=== PATIENT | female | born 1960 | race Hispanic/Latino ===

== ENCOUNTER → 2019-12-27 | Day surgery (SDC) | payer BC, SELFPAY ==
[2019-12-24 13:29] LABS: BASOPHILS % 0.4 % (0.0-1.0); EOSINOPHILS # (AUTO) 0.1 (0.0-0.4); EOSINOPHILS % 0.9 % (0.0-6.0); HEMATOCRIT 28.1 % (34.2-44.1); HEMOGLOBIN 8.6 g/dL (12.0-16.0); LYMPHOCYTES # (AUTO) 2.2 (1.0-3.2); LYMPHOCYTES % 28.8 % (18.0-39.1); MEAN CORPUSCULAR HEMOGLOBIN 25.8 pg (28-32); MEAN CORPUSCULAR HGB CONC 30.6 g/dL (31-35); MEAN CORPUSCULAR VOLUME 84.4 fL (81-99); MONOCYTES # (AUTO) 0.4 (0.2-0.8); MONOCYTES % 5.1 % (4.4-11.3); NEUTROPHILS % 64.5 % (38.7-80.0); PLATELET COUNT 383 x10e3/uL (140-360); RED BLOOD COUNT 3.33 x10e6/uL (3.6-5.1); RED CELL DISTRIBUTION WIDTH 15.2 % (11.7-14.4)
[2019-12-24 13:46] LABS: ANION GAP 15.2 mmol/L (8-16); CREATININE, SERUM 1.5 mg/dL (0.57-1.11); POTASSIUM 5.2 mmol/L (3.5-5.1)
[~2019-12-27] MED LIST: BASAGLAR K100 UNIT/1 SC; BETAMETHASONE DISODIUM PHOS 6 MG/ML VIAL ONE; BUPIVACAINE HCL 0.5% INJ 30 ML VIAL INJ ONE; CEFAZOLIN SOD 1 GM/NS 50ML 100 ML IV ONE; DEXAMETHASONE SOD PHOS INJ 4 MG/ML VIAL ONE; FENTANYL CITRATE/PF 100MCG/2 ML INJ ONE; GLIPIZIDE ER5 MG PO; HUMALOG100 UNIT/1 PO; LIDOCAINE HCL 1% LOCAL INJ 20 ML VIAL ONE; LIDOCAINE HCL 2% LOCAL INJ 5 ML SDV VIAL INJ ONE; METFORMIN HCL500 MG PO; MIDAZOLAM HCL 2 MG/2 ML VIAL ONE; ONDANSETRON HCL INJ 2MG/ML 2ML 2 MG/ML VIAL ONE; PROPOFOL IV EMULSION 10 MG/ML 20 ML VIAL ONE; SEVOFLURANE INHAL SOLN 250 ML PEN BTL ONE
[2019-12-27 06:32] LABS: ANION GAP 16.2 mmol/L (8-16); CREATININE, SERUM 1.66 mg/dL (0.57-1.11); POTASSIUM 5.2 mmol/L (3.5-5.1)
[2019-12-27 09:35] VITALS: BP 140/78
== END | disposition home or self-care (01) ==
LOC: OR 05:31
PROVIDERS: ATTEND Podiatrist Foot Surgery
DX: M86.172 Other acute osteomyelitis, left ankle and foot (principal); M86.672 Other chronic osteomyelitis, left ankle and foot; I96 Gangrene, not elsewhere classified; M20.12 Hallux valgus (acquired), left foot; L97.529 Non-pressure chronic ulcer of other part of left foot with unspecified severity; M87.9 Osteonecrosis, unspecified; E11.22 Type 2 diabetes mellitus with diabetic chronic kidney disease; N18.9 Chronic kidney disease, unspecified; R00.0 Tachycardia, unspecified; Z01.810 Encounter for preprocedural cardiovascular examination; Z01.812 Encounter for preprocedural laboratory examination; Z01.818 Encounter for other preprocedural examination; Z20.828 Contact with and (suspected) exposure to other viral communicable diseases; Z79.4 Long term (current) use of insulin
CPT/HCPCS: 14040; 28820; 36415 ×2; 71046; 73620; 80048 ×2; 82948; 85025; 87071; 87075; 87186; 87205; 88305; 88311; 93005; J0690; J0720; J1100; J2001 ×2; J2250; J2405; J2704; J3010; U0002; 88304

== ENCOUNTER 2020-07-25 11:29 | Inpatient (IN) | payer BC, SELFPAY ==
[~2020-07-25] VITALS: Ht 160 cm; Wt 63.5 kg
[~2020-07-25 11:29] MED LIST changes: -BETAMETHASONE DISODIUM PHOS 6 MG/ML VIAL ONE; -BUPIVACAINE HCL 0.5% INJ 30 ML VIAL INJ ONE; -CEFAZOLIN SOD 1 GM/NS 50ML 100 ML IV ONE; -DEXAMETHASONE SOD PHOS INJ 4 MG/ML VIAL ONE; -FENTANYL CITRATE/PF 100MCG/2 ML INJ ONE; -LIDOCAINE HCL 1% LOCAL INJ 20 ML VIAL ONE; -LIDOCAINE HCL 2% LOCAL INJ 5 ML SDV VIAL INJ ONE; -MIDAZOLAM HCL 2 MG/2 ML VIAL ONE; -ONDANSETRON HCL INJ 2MG/ML 2ML 2 MG/ML VIAL ONE; -PROPOFOL IV EMULSION 10 MG/ML 20 ML VIAL ONE; -SEVOFLURANE INHAL SOLN 250 ML PEN BTL ONE
[2020-07-25 12:07] LABS: BASOPHILS % 0.2 % (0.0-1.0); EOSINOPHILS # (AUTO) 0.1 (0.0-0.4); EOSINOPHILS % 0.4 % (0.0-6.0); HEMATOCRIT 40.1 % (34.2-44.1); HEMOGLOBIN 12.6 g/dL (12.0-16.0); LYMPHOCYTES # (AUTO) 3.4 (1.0-3.2); LYMPHOCYTES % 27.1 % (18.0-39.1); MEAN CORPUSCULAR HEMOGLOBIN 26.7 pg (28-32); MEAN CORPUSCULAR HGB CONC 31.4 g/dL (31-35); MONOCYTES # (AUTO) 0.7 (0.2-0.8); MONOCYTES % 5.6 % (4.4-11.3); NEUTROPHILS # (AUTO) 8.2 (2.1-6.9); NEUTROPHILS % 66.4 % (38.7-80.0); PLATELET COUNT 356 x10e3/uL (140-360); RED BLOOD COUNT 4.72 x10e6/uL (3.6-5.1)
[2020-07-25 12:25] LABS: ALBUMIN 3.8 g/dL (3.5-5.0); ALBUMIN/GLOBULIN RATIO 0.7 (0.8-2.0); ANION GAP 14.9 mmol/L (8-16); CALCIUM 9.8 mg/dL (8.4-10.2); CREATININE, SERUM 1.93 mg/dL (0.57-1.11); POTASSIUM 5.9 mmol/L (3.5-5.1)
[2020-07-25] MEDS ORDERED: SODIUM CHLORIDE 0.9% 500ML 500 ML IV ONE (13:45)
[2020-07-25] MEDS ORDERED: ATORVASTATIN CA40 MG (13:57)
[2020-07-25] MEDS ORDERED: FUROSEMIDE20 MG (13:57)
[2020-07-25] MEDS ORDERED: LISINOPRIL2.5 MG (13:57)
[2020-07-25] MEDS ORDERED: LOPRESSOR25 MG (13:57)
[2020-07-25] MEDS ORDERED: SODIUM CHLORIDE 0.9% 1000ML 1,000 ML IV SCH (14:30)
[2020-07-25] MEDS ORDERED: DEXTROSE 50% SYRINGE 50 ML IV PRN (14:30)
[2020-07-25] MEDS ORDERED: ONDANSETRON HCL INJ 2MG/ML 2ML 2 MG/ML VIAL IV PRN (14:30)
[2020-07-25 15:18] LABS: CREATINE KINASE MB 1.3 ng/mL (0-5.0)
[2020-07-25] MEDS ORDERED: DEXTROSE 50% SYRINGE 50 ML IV STA (15:47)
[2020-07-25] MEDS ORDERED: SOD POLYSTYRENE SULFONATE SUSP 15 GM/60 ML BTL PO ONE (16:00)
[2020-07-25] MEDS ORDERED: CALCIUM GLUCONATE 10% INJ 4.65 MEQ in SODIUM CHLORIDE 0.9% 50ML 50 ML IV ONE (16:00)
[2020-07-25] MEDS ORDERED: LACTULOSE SYRUP 20 GM/30 ML UDC PO ONE (16:00)
[2020-07-25] MEDS ORDERED: INSULIN REGULAR, HUMAN 100 UNIT/1 ML 3ML VIAL IV ONE (16:00)
[2020-07-25] MEDS: INSULIN LISPRO 100 UNIT/1 ML 3ML VIAL SQ SCH ×2 (16:18→21:00)
[2020-07-25 16:52] LABS: CLARITY,URINE HAZY (CLEAR); COLOR,URINE YELLOW (YELLOW); KETONES,URINE NEGATIVE (NEGATIVE); LEUKOCYTE ESTERASE ,URINE MODERATE (NEGATIVE); NITRITE,URINE NEGATIVE (NEGATIVE); PROTEIN,URINE DIPSTICK 2+ (NEGATIVE); URINE UROBILINOGEN 0.2 mg/dL (0.2 - 1)
[2020-07-25 17:08] LABS: BACTERIA,URINE MANY /HPF
[2020-07-25 17:44] LABS: CREATININE,URINE RANDOM 61.76 mg/dL (47-110); TOTAL PROTEIN, URINE 56.6 mg/dL (1-14)
[2020-07-25] MEDS: SODIUM CHLORIDE 0.9% 1000ML 1,000 ML IV SCH (18:45)
[2020-07-25 21:14] LABS: ALBUMIN 3.6 g/dL (3.5-5.0); ALBUMIN/GLOBULIN RATIO 0.8 (0.8-2.0); CALCIUM 9.6 mg/dL (8.4-10.2); CREATININE, SERUM 1.96 mg/dL (0.57-1.11)
[2020-07-25 21:29] LABS: CREATINE KINASE MB 1.6 ng/mL (0-5.0)
[2020-07-25 22:00] VITALS: BP 166/77
[2020-07-25 22:04] VITALS: BP 166/77
[2020-07-26] VITALS (8 sets, daily range): BP systolic 163–178; BP diastolic 74–85
[2020-07-26] MEDS: SODIUM CHLORIDE 0.9% 1000ML 1,000 ML IV SCH ×3 (03:20→23:10)
[2020-07-26 06:13] LABS: BASOPHILS % 0.4 % (0.0-1.0); EOSINOPHILS # (AUTO) 0.1 (0.0-0.4); EOSINOPHILS % 0.8 % (0.0-6.0); HEMATOCRIT 36.8 % (34.2-44.1); HEMOGLOBIN 11.8 g/dL (12.0-16.0); LYMPHOCYTES # (AUTO) 2.9 (1.0-3.2); LYMPHOCYTES % 34.6 % (18.0-39.1); MEAN CORPUSCULAR HEMOGLOBIN 27.1 pg (28-32); MEAN CORPUSCULAR HGB CONC 32.1 g/dL (31-35); MEAN CORPUSCULAR VOLUME 84.4 fL (81-99); MONOCYTES # (AUTO) 0.7 (0.2-0.8); MONOCYTES % 8.2 % (4.4-11.3); NEUTROPHILS # (AUTO) 4.6 (2.1-6.9); NEUTROPHILS % 55.8 % (38.7-80.0); PLATELET COUNT 304 x10e3/uL (140-360); RED BLOOD COUNT 4.36 x10e6/uL (3.6-5.1)
[2020-07-26 06:26] LABS: ALBUMIN 3.2 g/dL (3.5-5.0); ALBUMIN/GLOBULIN RATIO 0.7 (0.8-2.0); ANION GAP 10.2 mmol/L (8-16); CALCIUM 8.6 mg/dL (8.4-10.2); CREATININE, SERUM 1.35 mg/dL (0.57-1.11); POTASSIUM 4.2 mmol/L (3.5-5.1)
[2020-07-26 06:45] LABS: CREATINE KINASE MB 1.7 ng/mL (0-5.0)
[2020-07-26] MEDS: INSULIN LISPRO 100 UNIT/1 ML 3ML VIAL SQ SCH ×4 (07:30→20:49)
[2020-07-26] MEDS: TERAZOSIN HCL 1 MG CAP PO SCH (20:47)
[2020-07-27] VITALS (8 sets, daily range): BP systolic 150–198; BP diastolic 80–97
[2020-07-27 06:11] LABS: ANION GAP 12.9 mmol/L (8-16); CALCIUM 8.6 mg/dL (8.4-10.2); CREATININE, SERUM 1.24 mg/dL (0.57-1.11); POTASSIUM 3.9 mmol/L (3.5-5.1)
[2020-07-27] MEDS: INSULIN LISPRO 100 UNIT/1 ML 3ML VIAL SQ SCH ×4 (07:55→21:36)
[2020-07-27] MEDS: SODIUM CHLORIDE 0.9% 1000ML 1,000 ML IV SCH ×2 (08:00→20:58)
[2020-07-27] MEDS: SODIUM BICARBONATE 650 MG TAB PO SCH (08:01)
[2020-07-27] MEDS: TERAZOSIN HCL 1 MG CAP PO SCH (21:36)
[2020-07-27] MEDS: MEROPENEM 500 MG in SODIUM CHLORIDE 0.9% 50ML 50 ML IV SCH (22:00)
[2020-07-28] VITALS (8 sets, daily range): BP systolic 142–173; BP diastolic 71–87
[2020-07-28] MEDS: HYDRALAZINE HCL 20 MG/ML VIAL IV PRN ×2 (01:02→12:22)
[2020-07-28] MEDS: MEROPENEM 500 MG in SODIUM CHLORIDE 0.9% 50ML 50 ML IV SCH ×3 (05:07→22:51)
[2020-07-28] MEDS: SODIUM CHLORIDE 0.9% 1000ML 1,000 ML IV SCH (05:07)
[2020-07-28 05:38] LABS: ANION GAP 9.6 mmol/L (8-16); CALCIUM 8.5 mg/dL (8.4-10.2); CREATININE, SERUM 1.16 mg/dL (0.57-1.11); POTASSIUM 3.6 mmol/L (3.5-5.1)
[2020-07-28] MEDS: INSULIN LISPRO 100 UNIT/1 ML 3ML VIAL SQ SCH ×4 (07:30→21:20)
[2020-07-28] MEDS ORDERED: ONDANSETRON HCL 4 MG ORAL DISINTEGRATING TAB PO PRN (08:15)
[2020-07-28] MEDS: SODIUM BICARBONATE 650 MG TAB PO SCH (09:25)
[2020-07-28] MEDS: TERAZOSIN HCL 1 MG CAP PO SCH (21:19)
[2020-07-29] VITALS (8 sets, daily range): BP systolic 127–156; BP diastolic 66–75
[2020-07-29] MEDS: METOPROLOL TARTRATE 50 MG TAB PO SCH ×3 (00:55→16:21)
[2020-07-29 05:34] LABS: ANION GAP 11.1 mmol/L (8-16); CALCIUM 8.4 mg/dL (8.4-10.2); CREATININE, SERUM 1.33 mg/dL (0.57-1.11); POTASSIUM 4.1 mmol/L (3.5-5.1)
[2020-07-29] MEDS: MEROPENEM 500 MG in SODIUM CHLORIDE 0.9% 50ML 50 ML IV SCH (05:58)
[2020-07-29] MEDS: INSULIN LISPRO 100 UNIT/1 ML 3ML VIAL SQ SCH ×4 (07:30→21:51)
[2020-07-29] MEDS: SODIUM BICARBONATE 650 MG TAB PO SCH (08:24)
[2020-07-29] MEDS: MEROPENEM 1 GM in SODIUM CHLORIDE 0.9% 100 ML IV SCH (16:21)
[2020-07-29] MEDS: TERAZOSIN HCL 1 MG CAP PO SCH (21:22)
[2020-07-30 01:42] VITALS: BP 143/82
[2020-07-30 05:26] VITALS: BP 133/77
[2020-07-30] MEDS: MEROPENEM 1 GM in SODIUM CHLORIDE 0.9% 100 ML IV SCH (05:53)
[2020-07-30] MEDS: INSULIN LISPRO 100 UNIT/1 ML 3ML VIAL SQ SCH ×3 (07:30→16:30)
[2020-07-30 08:07] VITALS: BP 153/80
[2020-07-30 08:12] VITALS: BP 153/80
[2020-07-30] MEDS: SODIUM BICARBONATE 650 MG TAB PO SCH (08:56)
[2020-07-30] MEDS: METOPROLOL TARTRATE 50 MG TAB PO SCH ×2 (09:01→16:13)
[2020-07-30 11:38] VITALS: BP 161/69
[2020-07-30] MEDS ORDERED: SODIUM BICARBO650 MG PO (13:44)
[2020-07-30] MEDS ORDERED: METOPROLOL TART50 MG PO (13:44)
[2020-07-30] MEDS ORDERED: HYTRIN1 M1 PO (13:44)
[2020-07-30] MEDS ORDERED: MEROPENEM1 GM IVP (13:48)
[2020-07-30 15:15] VITALS: BP 147/67
== END 2020-07-30 17:47 | disposition home or self-care (01) | DRG 683 ==
LOC: ER 12:15 → ERHOLD 14:38 → MED/SURG2 21:37
PROVIDERS: ADMIT Internal Medicine; ATTEND Internal Medicine
PROC: 02HV33Z Insertion of Infusion Device into Superior Vena Cava, Percutaneous Approach (ICD-10-PCS; principal; 2020-07-29)
DX: N17.9 Acute kidney failure, unspecified (principal); N39.0 Urinary tract infection, site not specified; E87.2 Acidosis; E87.6 Hypokalemia; B96.20 Unspecified Escherichia coli [E. coli] as the cause of diseases classified elsewhere; N18.32 Chronic kidney disease, stage 3b; E87.5 Hyperkalemia; E11.319 Type 2 diabetes mellitus with unspecified diabetic retinopathy without macular edema; E11.42 Type 2 diabetes mellitus with diabetic polyneuropathy; E11.22 Type 2 diabetes mellitus with diabetic chronic kidney disease; E78.5 Hyperlipidemia, unspecified; I12.9 Hypertensive chronic kidney disease with stage 1 through stage 4 chronic kidney disease, or unspecified chronic kidney disease; Z79.4 Long term (current) use of insulin
CPT/HCPCS: 36415; 76770; 80048; 80053; 81001; 82550; 82553; 82570; 82948; 84156; 84484; 85025; 87086; 87186; 93005; 96361; 96372; 99284; J0360; J0610; J1817; J2185; J7030; J7040; J7050; J7799

== ENCOUNTER 2022-04-09 10:06 | Inpatient (IN) | payer BC, OTHER ==
[~2022-04-09] VITALS: Ht 160 cm; Wt 63.5 kg
[~2022-04-09 10:06] MED LIST changes: +ATORVASTATIN CA40 MG; +FUROSEMIDE20 MG; +HYTRIN1 M1 PO; +LANTUS 3ML100 UNITS/ SQ; +LISINOPRIL2.5 MG; +LOPRESSOR25 MG; +MEROPENEM1 GM IVP; +METOPROLOL TART50 MG PO; +SODIUM BICARBO650 MG PO
[2022-04-09] MEDS ORDERED: SODIUM CHLORIDE 0.9% 1000ML 1,000 ML IV STA (10:18)
[2022-04-09] MEDS ORDERED: ONDANSETRON HCL INJ 2MG/ML 2ML 2 MG/ML VIAL IV PRN ×2 (10:30→13:00)
[2022-04-09] MEDS ORDERED: SODIUM CHLORIDE 0.9% 1000ML 1,000 ML ONE (10:41)
[2022-04-09] MEDS ORDERED: ONDANSETRON HCL INJ 2MG/ML 2ML 2 MG/ML VIAL ONE (10:41)
[2022-04-09 11:07] LABS: CLARITY,URINE CLEAR (CLEAR); COLOR,URINE YELLOW (YELLOW); KETONES,URINE NEGATIVE (NEGATIVE); LEUKOCYTE ESTERASE ,URINE NEGATIVE (NEGATIVE); NITRITE,URINE NEGATIVE (NEGATIVE); PROTEIN,URINE DIPSTICK >=300 (NEGATIVE); URINE UROBILINOGEN 0.2 mg/dL (0.2 - 1)
[2022-04-09 11:21] LABS: AMORPHOUS SEDIMENT,URINE FEW (FEW); BACTERIA,URINE MODERATE /HPF; EPITHELIAL CELLS,URINE RARE /LPF; RBC,URINE 0-5 /HPF (0-5); WBC,URINE (MAN) 0-5 /HPF (0-5)
[2022-04-09 11:49] LABS: BASOPHILS # (AUTO) 0.1 (0.0-0.1); BASOPHILS % 0.2 % (0.0-1.0); HEMATOCRIT 33.3 % (34.2-44.1); HEMOGLOBIN 10.7 g/dL (12.0-16.0); LYMPHOCYTES # (AUTO) 1.2 (1.0-3.2); LYMPHOCYTES % 4.2 % (18.0-39.1); MEAN CORPUSCULAR HEMOGLOBIN 27.4 pg (28-32); MEAN CORPUSCULAR HGB CONC 32.1 g/dL (31-35); MEAN CORPUSCULAR VOLUME 85.4 fL (81-99); MONOCYTES # (AUTO) 1.5 (0.2-0.8); MONOCYTES % 5.4 % (4.4-11.3); NEUTROPHILS # (AUTO) 25.5 (2.1-6.9); NEUTROPHILS % 89.4 % (38.7-80.0); PLATELET COUNT 161 x10e3/uL (140-360); RED CELL DISTRIBUTION WIDTH 14.4 % (11.7-14.4)
[2022-04-09 12:10] LABS: ALBUMIN 2.4 g/dL (3.5-5.0); ALBUMIN/GLOBULIN RATIO 0.5 (0.8-2.0); ANION GAP 16.6 mmol/L (8-16); CALCIUM 8.8 mg/dL (8.4-10.2); CREATININE, SERUM 2.95 mg/dL (0.57-1.11); POTASSIUM 4.6 mmol/L (3.5-5.1)
[2022-04-09] MEDS ORDERED: PIPERACILLIN/TAZOBACTAM 4.5 GM in SODIUM CHLORIDE 0.9% 100 ML IV STA (12:31)
[2022-04-09] MEDS ORDERED: SODIUM CHLORIDE 0.9% 1000ML 1,000 ML IV SCH (13:00)
[2022-04-09 13:02] LABS: LYMPHOCYTES % (MANUAL) 4 % (19-48); MONOCYTES % (MANUAL) 7 % (3.4-9.0); NEUTROPHILS % (MANUAL) 89 % (40-74)
[2022-04-09 13:03] LABS: PLATELET ESTIMATE ADEQUATE; PLATELET MORPHOLOGY COMMENT NORMAL; RBC MORPHOLOGY COMMENT NORMAL
[2022-04-09] MEDS ORDERED: ACETAMINOPHEN 325 MG TAB ONE (16:43)
[2022-04-09] MEDS ORDERED: ACETAMINOPHEN 325 MG TAB PO ONE (16:45)
[2022-04-09 17:59] VITALS: BP 110/55
[2022-04-09] MEDS ORDERED: DEXTROSE 50% SYRINGE 50 ML IV PRN (19:00)
[2022-04-09] MEDS: SODIUM CHLORIDE 0.9% 1000ML 1,000 ML IV SCH ×2 (19:04→22:09)
[2022-04-09] MEDS: INSULIN REGULAR, HUMAN 100 UNIT/1 ML SQ SCH ×2 (19:28→22:05)
[2022-04-09] MEDS ORDERED: ACETAMINOPHEN 325 MG TAB PO PRN (19:30)
[2022-04-09] MEDS ORDERED: GUAIFENESIN/DEXTROMETHORPHAN LIQD 5 ML UDC PO PRN (19:30)
[2022-04-09] MEDS ORDERED: MELATONIN 3 MG TAB PO PRN (19:30)
[2022-04-09] MEDS ORDERED: HYDRALAZINE HCL 20 MG/ML VIAL IV PRN (19:30)
[2022-04-09 20:00] VITALS: BP 117/64
[2022-04-09 21:00] VITALS: BP 117/64
[2022-04-10] VITALS (9 sets, daily range): BP systolic 110–128; BP diastolic 50–72
[2022-04-10] MEDS: SODIUM CHLORIDE 0.9% 1000ML 1,000 ML IV SCH ×3 (04:54→23:07)
[2022-04-10 06:54] LABS: BASOPHILS % 0.2 % (0.0-1.0); HEMATOCRIT 34.1 % (34.2-44.1); HEMOGLOBIN 10.4 g/dL (12.0-16.0); LYMPHOCYTES # (AUTO) 1.5 (1.0-3.2); LYMPHOCYTES % 7.2 % (18.0-39.1); MEAN CORPUSCULAR HEMOGLOBIN 26.8 pg (28-32); MEAN CORPUSCULAR HGB CONC 30.5 g/dL (31-35); MEAN CORPUSCULAR VOLUME 87.9 fL (81-99); MONOCYTES # (AUTO) 1.3 (0.2-0.8); MONOCYTES % 6.2 % (4.4-11.3); NEUTROPHILS # (AUTO) 17.5 (2.1-6.9); NEUTROPHILS % 85.5 % (38.7-80.0); PLATELET COUNT 166 x10e3/uL (140-360); RED BLOOD COUNT 3.88 x10e6/uL (3.6-5.1); RED CELL DISTRIBUTION WIDTH 14.8 % (11.7-14.4)
[2022-04-10 07:10] LABS: CALCIUM 8.5 mg/dL (8.4-10.2); CREATININE, SERUM 2.9 mg/dL (0.57-1.11)
[2022-04-10] MEDS: MULTIVITAMINS/MINERALS TAB PO SCH (09:34)
[2022-04-10] MEDS: NPH, HUMAN INSULIN ISOPHANE 100 UNIT/1 ML 3ML VIAL SQ SCH ×2 (09:41→17:15)
[2022-04-10] MEDS: INSULIN REGULAR, HUMAN 100 UNIT/1 ML SQ SCH ×4 (09:42→22:00)
[2022-04-11] VITALS (8 sets, daily range): BP systolic 124–163; BP diastolic 64–84
[2022-04-11] MEDS: SODIUM CHLORIDE 0.9% 1000ML 1,000 ML IV SCH (04:51)
[2022-04-11 07:44] LABS: BASOPHILS # (AUTO) 0.1 (0.0-0.1); BASOPHILS % 0.4 % (0.0-1.0); EOSINOPHILS # (AUTO) 0.1 (0.0-0.4); EOSINOPHILS % 0.8 % (0.0-6.0); HEMATOCRIT 29.8 % (34.2-44.1); HEMOGLOBIN 9.5 g/dL (12.0-16.0); LYMPHOCYTES # (AUTO) 1.8 (1.0-3.2); LYMPHOCYTES % 15.7 % (18.0-39.1); MEAN CORPUSCULAR HEMOGLOBIN 26.7 pg (28-32); MEAN CORPUSCULAR HGB CONC 31.9 g/dL (31-35); MEAN CORPUSCULAR VOLUME 83.7 fL (81-99); MONOCYTES # (AUTO) 0.9 (0.2-0.8); MONOCYTES % 8.1 % (4.4-11.3); NEUTROPHILS # (AUTO) 8.3 (2.1-6.9); NEUTROPHILS % 73.8 % (38.7-80.0); PLATELET COUNT 218 x10e3/uL (140-360); RED BLOOD COUNT 3.56 x10e6/uL (3.6-5.1); RED CELL DISTRIBUTION WIDTH 14.6 % (11.7-14.4)
[2022-04-11 08:08] LABS: ANION GAP 15.9 mmol/L (8-16); CALCIUM 8.1 mg/dL (8.4-10.2); CREATININE, SERUM 3.07 mg/dL (0.57-1.11); POTASSIUM 3.9 mmol/L (3.5-5.1)
[2022-04-11] MEDS: MULTIVITAMINS/MINERALS TAB PO SCH (09:18)
[2022-04-11] MEDS: INSULIN REGULAR, HUMAN 100 UNIT/1 ML SQ SCH ×4 (09:19→22:00)
[2022-04-11] MEDS: NPH, HUMAN INSULIN ISOPHANE 100 UNIT/1 ML 3ML VIAL SQ SCH ×2 (09:20→17:53)
[2022-04-11 16:24] LABS: LYMPHOCYTES % (MANUAL) 21 % (19-48); MONOCYTES % (MANUAL) 5 % (3.4-9.0); NEUTROPHILS % (MANUAL) 74 % (40-74)
[2022-04-11 16:26] LABS: PLATELET ESTIMATE ADEQUATE; PLATELET MORPHOLOGY COMMENT NORMAL; RBC MORPHOLOGY COMMENT NORMAL
[2022-04-12] VITALS (7 sets, daily range): BP systolic 141–166; BP diastolic 61–95
[2022-04-12] MEDS: SODIUM CHLORIDE 0.9% 1000ML 1,000 ML IV SCH ×4 (04:36→22:26)
[2022-04-12] MEDS: INSULIN REGULAR, HUMAN 100 UNIT/1 ML SQ SCH ×4 (07:30→22:32)
[2022-04-12] MEDS: NPH, HUMAN INSULIN ISOPHANE 100 UNIT/1 ML 3ML VIAL SQ SCH ×2 (08:00→17:15)
[2022-04-12] MEDS: MULTIVITAMINS/MINERALS TAB PO SCH (08:08)
[2022-04-12] MEDS ORDERED: ONDANSETRON HCL 4 MG ORAL DISINTEGRATING TAB PO PRN (13:45)
[2022-04-13] VITALS (8 sets, daily range): BP systolic 136–172; BP diastolic 69–92
[2022-04-13] MEDS: SODIUM CHLORIDE 0.9% 1000ML 1,000 ML IV SCH ×2 (06:20→21:19)
[2022-04-13] MEDS: INSULIN REGULAR, HUMAN 100 UNIT/1 ML SQ SCH ×4 (07:30→21:18)
[2022-04-13] MEDS: NPH, HUMAN INSULIN ISOPHANE 100 UNIT/1 ML 3ML VIAL SQ SCH ×2 (07:30→16:30)
[2022-04-13] MEDS: MULTIVITAMINS/MINERALS TAB PO SCH (08:46)
[2022-04-13 12:32] LABS: BASOPHILS % 0.3 % (0.0-1.0); EOSINOPHILS # (AUTO) 0.1 (0.0-0.4); EOSINOPHILS % 0.4 % (0.0-6.0); HEMATOCRIT 32.1 % (34.2-44.1); HEMOGLOBIN 9.9 g/dL (12.0-16.0); LYMPHOCYTES # (AUTO) 1.7 (1.0-3.2); LYMPHOCYTES % 12.4 % (18.0-39.1); MEAN CORPUSCULAR HEMOGLOBIN 26.5 pg (28-32); MEAN CORPUSCULAR HGB CONC 30.8 g/dL (31-35); MEAN CORPUSCULAR VOLUME 86.1 fL (81-99); MONOCYTES % 6.9 % (4.4-11.3); NEUTROPHILS # (AUTO) 10.9 (2.1-6.9); NEUTROPHILS % 79.1 % (38.7-80.0); PLATELET COUNT 357 x10e3/uL (140-360); RED BLOOD COUNT 3.73 x10e6/uL (3.6-5.1); RED CELL DISTRIBUTION WIDTH 15.3 % (11.7-14.4)
[2022-04-13 12:40] LABS: ANION GAP 14.8 mmol/L (8-16); CALCIUM 8.2 mg/dL (8.4-10.2); CREATININE, SERUM 2.37 mg/dL (0.57-1.11); POTASSIUM 3.8 mmol/L (3.5-5.1)
[2022-04-14] VITALS: BP 167/84
[2022-04-14 04:00] VITALS: BP 148/73
[2022-04-14] MEDS: SODIUM CHLORIDE 0.9% 1000ML 1,000 ML IV SCH (05:19)
[2022-04-14] MEDS: NPH, HUMAN INSULIN ISOPHANE 100 UNIT/1 ML 3ML VIAL SQ SCH (07:30)
[2022-04-14 08:00] VITALS: BP 164/80
[2022-04-14 08:07] VITALS: BP 164/80
[2022-04-14] MEDS: MULTIVITAMINS/MINERALS TAB PO SCH (08:45)
[2022-04-14] MEDS: INSULIN REGULAR, HUMAN 100 UNIT/1 ML SQ SCH ×2 (08:47→13:40)
[2022-04-14 11:32] VITALS: BP 141/83
== END 2022-04-14 16:12 | disposition home or self-care (01) | DRG 694 ==
LOC: ER 10:20 → ERHOLD 12:54 → MED/SURG3 17:15
PROVIDERS: ADMIT Internal Medicine; ATTEND Internal Medicine
DX: N20.0 Calculus of kidney (principal); N17.9 Acute kidney failure, unspecified; N39.0 Urinary tract infection, site not specified; E87.1 Hypo-osmolality and hyponatremia; E78.00 Pure hypercholesterolemia, unspecified; I12.9 Hypertensive chronic kidney disease with stage 1 through stage 4 chronic kidney disease, or unspecified chronic kidney disease; E11.22 Type 2 diabetes mellitus with diabetic chronic kidney disease; D63.1 Anemia in chronic kidney disease; R00.0 Tachycardia, unspecified; K52.9 Noninfective gastroenteritis and colitis, unspecified; N18.30 Chronic kidney disease, stage 3 unspecified; E11.21 Type 2 diabetes mellitus with diabetic nephropathy; Z20.822 Contact with and (suspected) exposure to COVID-19; Z89.429 Acquired absence of other toe(s), unspecified side
CPT/HCPCS: 36415; 71045; 74018; 74176; 76700; 80048; 80053; 81001; 82948; 83605; 83690; 84484; 85025; 87040; 87086; 93005; 94799; 96361; 99285; J1817; J2405; J2543; J7030